=== PATIENT | female | born 1980 ===

== ENCOUNTER 2016-10-21 08:59 | Emergency (ER) | payer MEDICAID ==
[2016-10-21] MEDS ORDERED: Sodium Chloride 0.9% 1,000 ML IV STA (09:20)
[2016-10-21] MEDS ORDERED: Sodium Chloride 0.9% 1,000 ML ONE (09:29)
[2016-10-21 09:35] LABS: RBC URINE 1049 /hpf (0-3); URINE BILIRUBIN NEGATIVE (NEGATIVE); URINE BLOOD 3+ (NEGATIVE); URINE COLOR Red (YELLOW); URINE GLUCOSE (UA) NORMAL (Normal); URINE KETONE NEGATIVE (NEGATIVE); URINE LEUKOCYTE ESTERASE NEG Leu/uL (Negative); URINE PROTEIN 2+ mg/dL (NEGATIVE); URINE UROBILINOGEN NORMAL mg/dL (0.2-1.0)
[2016-10-21 09:47] LABS: ALB/GLOB RATIO 1.1 (1.0-2.1); ALKALINE PHOSPHATASE 96 U/L (38-126); ALT/SGPT 18 U/L (9-52); AST/SGOT 16 U/L (14-36); BILIRUBIN,TOTAL 0.4 mg/dL (0.2-1.3); BLOOD UREA NITROGEN 16 mg/dL (7-17); CALCIUM 9.9 mg/dl (8.6-10.4); CARBON DIOXIDE 25 mmol/L (22-30); CHLORIDE 98 mmol/L (98-107); GFR AFRICAN-AMERICAN > 60; GLUCOSE,RANDOM 146 mg/dL (65-105); POTASSIUM 3.7 mmol/L (3.6-5.2); SODIUM 138 mmol/L (132-148); TOTAL PROTEIN 7.5 g/dL (6.3-8.3)
[2016-10-21 09:48] LABS: BASO % 0.2 % (0.0-2.0); EOS % 0.2 % (0.0-4.0); HEMATOCRIT 37.3 % (34.0-47.0); LYMPH # 2.1 K/uL (1.0-4.3); LYMPH % 15.2 % (20.0-40.0); MEAN CELL VOLUME 78.7 fL (81.0-99.0); MEAN CORPUSCULAR HEMOGLOBIN 25.3 pg (27.0-31.0); MEAN CORPUSCULAR HGB CONC 32.2 g/dL (33.0-37.0); MONO # 0.6 K/uL (0.0-0.8); RED CELL DISTRIBUTION WIDTH 14.5 % (11.5-14.5); WHITE BLOOD COUNT 14.1 K/uL (4.8-10.8)
--- NOTE | 2016-10-21 10:34 | US ---
HISTORY: , bleeding COMPARISON: None available. TECHNIQUE: Transvaginal pelvic ultrasound was performed in longitudinal and transverse planes. FINDINGS: UTERUS: Measures 10.8 x 5.2 x 5.8 cm cm. The myometrium appears somewhat inhomogeneous but without focal mass appreciable. The uterus is anteverted. ENDOMETRIUM: Measures 20.3 mm in diameter. The in the endometrium appears prominent in thickness with no viable identified within the endometrial cavity. Retained products of conception are not excluded given prominent thickness of the endometrium. CERVIX: No cervical abnormality identified. RIGHT OVARY: Measures 2.7 x 2.2 x 2.5 cm. No solid mass. Normal flow. LEFT OVARY: Measures 2.8 x 2.9 x 1.7 cm. No solid mass. Normal flow. FREE FLUID: No significant free fluid noted. OTHER FINDINGS: None. IMPRESSION: No viable intrauterine gestation is appreciated this time within the endometrial cavity. The endometrium appears prominently thickened and retained products of conception are not excluded. Clinical correlation is advised.
--- NOTE | 2016-10-21 12:41 | C.PDOC ---
History Of Present Illness 36 year old female presents to the ED with complaints of vaginal bleeding and pelvic cramping beginning yesterday. Patient notes symptoms worsening today and bleed "two large clots" this morning. 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 Patient denies fever, nausea, or vomiting. Time Seen by Provider: 10/21/16 09:12 Chief Complaint (Nursing): Female Genitourinary History Per: Patient History/Exam Limitations: no limitations Onset/Duration Of Symptoms: Days (1 day ), Worse Since (this morning ) Current Symptoms Are (Timing): Still Present Quality Of Discomfort: Cramping Associated Symptoms: denies: Fever, Chills, Nausea, Vomiting, Diarrhea Recent travel outside of the [place]: No Abnormal Vaginal Bleeding: Yes Past Medical History Reviewed: Historical Data, Nursing Documentation, Vital Signs Vital Signs: Last Vital Signs Temp 98.4 F 10/21/16 12:52 Pulse 89 10/21/16 12:52 Resp 16 10/21/16 12:52 BP 117/72 10/21/16 12:52 Pulse Ox 100 10/21/16 13:48 Family History: States: Unknown Family Hx - Social History Hx Alcohol Use: Yes Hx Substance Use: No Review Of Systems Constitutional: Negative for: Fever, Chills Cardiovascular: Negative for: Chest Pain Respiratory: Negative for: Shortness of Breath Gastrointestinal: Negative for: Nausea, Vomiting Genitourinary: Positive for: Vaginal Bleeding, Pelvic Pain (pelvic cramping ). Negative for: Dysuria, Hematuria Physical Exam - Physical Exam Appears: Non-toxic, No Acute Distress Skin: Warm, Dry Head: Atraumatic Eye(s): bilateral: Normal Inspection Oral Mucosa: Moist Neck: Supple Chest: Symmetrical, No Deformity Cardiovascular: Rhythm Regular Respiratory: Normal Breath Sounds, No Rales, No Rhonchi, No Wheezing Gastrointestinal/Abdominal: Soft, Tenderness (mild suprapubic tenderness ), No Distention, No Guarding, No Rebound Extremity: Normal ROM, No Tenderness Neurological/Psych: Oriented x3, Normal Speech, Normal Cognition ED Course And Treatment - Laboratory Results Result Diagrams: 10/21/16 09:30 10/21/16 09:30 O2 Sat by Pulse Oximetry: 100 (room air ) - CT Scan/US Pelvic US Other Rad Studies (CT/US): Read By Radiologist, Radiology Report Reviewed CT/US Interpretation: Accession No. : [id number]. Patient Name / ID : BRANDT ANGULO / [id number]. Exam Date : 10/21/2016 09:36:15 ( Approved ). Study Comment : Sex / Age : F / 36Y. Creator : Austen Moura MD. Dictator : Austen Moura MD. Postdoctoral Fellow : Traveler Changer : Austen Moura MD. Approver2 : Report Date : 10/21/2016 10:32:17. My Comment : . HISTORY: , bleeding. COMPARISON: None available. TECHNIQUE: Transvaginal pelvic ultrasound was performed in longitudinal and transverse planes. FINDINGS: UTERUS: Measures 10.8 x 5.2 x 5.8 cm cm. The myometrium appears somewhat inhomogeneous but without focal mass appreciable. The uterus is anteverted. ENDOMETRIUM: Measures 20.3 mm in diameter. The in the endometrium appears prominent in thickness with no viable identified within the endometrial cavity. Retained products of conception are not excluded given prominent thickness of the endometrium. CERVIX: No cervical abnormality identified. RIGHT OVARY: Measures 2.7 x 2.2 x 2.5 cm. No solid mass. Normal flow. LEFT OVARY: Measures 2.8 x 2.9 x 1.7 cm. No solid mass. Normal flow. FREE FLUID: No significant free fluid noted. OTHER FINDINGS: None. IMPRESSION: No viable intrauterine gestation is appreciated this time within the endometrial cavity. The endometrium appears prominently thickened and retained products of conception are not excluded. Clinical correlation is advised. Progress Note: Patient was given Doryx, Tylenol, and IV fluids. Explained to patient results of US and to return to ED if bleeding more than one pad an hour. Patient instructed to follow up with her TEXTILE COLORIST FORMULATOR this week. - Physician Consult Information Time Consulting Physician Contacted: 10:00 Physician Contacted: Rosemarie Herrmann Outcome Of Conversation: Case discussed with Dr. Herrmann after reviewing US results, endometrium is 2 cm which is acceptable and there is no indication for emergency D & C. Dr. Herrmann suggests to give and prescribe doxycycline. Disposition - Disposition Disposition: HOME/ ROUTINE Disposition Time: 12:39 Condition: STABLE Additional Instructions: Follow up with PMD /OBGYN within 1-2 days. Return to ED if feel worse. Prescriptions: Doxycycline Hyclate [Doryx] 100 mg PO BID #14 cap Instructions: Spontaneous Miscarriage (ED) Forms: [employer] (Hungarian) Print Language: ROMANIAN - Clinical Impression Clinical Impression: Miscarriage - Scribe Statement The provider has reviewed the documentation as recorded by the Scribe Heather Barnes All medical record entries made by the Scribe were at my direction and personally dictated by me. I have reviewed the chart and agree that the record accurately reflects my personal performance of the history, physical exam, medical decision making, and the department course for this patient. I have also personally directed, reviewed, and agree with the discharge instructions and disposition.
[2016-10-21 12:53] VITALS: BP 117/72; PULSE 89; RESP 16; TEMP 98.4
[2016-10-21 13:04] VITALS: O2SAT 100
== END 2016-10-21 12:54 | disposition home or self-care (01) ==
LOC: C.ER 08:59
DX: O03.9 Complete or unspecified spontaneous abortion without complication (principal)
CPT/HCPCS: 76830; 76856; 80053; 81001; 84702; 84703; 85025; 86850; 86900; 96360; 99285; J7040

== ENCOUNTER 2016-11-01 12:15 | Emergency (ER) | payer MEDICAID ==
[2016-11-01 13:06] LABS: URINE BACTERIA RARE (<OCC); URINE BILIRUBIN NEGATIVE (NEGATIVE); URINE COLOR Colorless (YELLOW); URINE GLUCOSE (UA) NORMAL (Normal); URINE KETONE NEGATIVE (NEGATIVE); URINE LEUKOCYTE ESTERASE TRACE Leu/uL (Negative); URINE PROTEIN NEGATIVE (NEGATIVE); URINE UROBILINOGEN NORMAL mg/dL (0.2-1.0); WBC URINE 1 /hpf (0-5)
[2016-11-01 13:20] LABS: RBC URINE 6 /hpf (0-3); URINE BLOOD 3+ (NEGATIVE)
--- NOTE | 2016-11-01 14:01 | C.PDOC ---
History Of Present Illness 36 y/o female, with no significant PMHx, presents to ED for evaluation of stabbing abdominal pain since yesterday. Denies taking any over the counter pain medications. Notes that pain is 6/10 in severity and is worse with positional changes, and deep inspiration. Pt states that she was seen here on 10/21/16 for miscarriage, and has not followed up with OBGYN since that time. Notes that she noticed blood in the urine which prompted her to visit the ED today. Denies dysuria, urinary frequency, back pain, n/v/d, or fever. Time Seen by Provider: 11/01/16 13:20 Chief Complaint (Nursing): Abdominal Pain History Per: Patient History/Exam Limitations: no limitations Onset/Duration Of Symptoms: Days (1) Current Symptoms Are (Timing): Still Present Severity: Moderate Pain Scale Rating Of: 6 Location Of Pain/Discomfort: Diffuse Radiation Of Pain To:: None Quality Of Discomfort: "Pain" Associated Symptoms: Urinary Symptoms (hematuria). denies: Nausea, Vomiting, Diarrhea, Loss Of Appetite, Back Pain, Chest Pain, Constipation Exacerbating Factors: Movement, Deep Breaths Alleviating Factors: None Recent travel outside of the [place]: No Additional History Per: Patient Abnormal Vaginal Bleeding: No Past Medical History Reviewed: Historical Data, Nursing Documentation, Vital Signs Vital Signs: Last Vital Signs Temp 98.4 F 11/01/16 15:36 Pulse 62 11/01/16 15:36 Resp 20 11/01/16 15:36 BP 100/71 11/01/16 15:36 Pulse Ox 100 11/01/16 15:36 Family History: States: Unknown Family Hx - Social History Hx Alcohol Use: Yes Hx Substance Use: No Review Of Systems Constitutional: Negative for: Fever, Chills Cardiovascular: Negative for: Chest Pain, Palpitations, Edema, Light Headedness Respiratory: Negative for: Cough, Shortness of Breath Gastrointestinal: Positive for: Abdominal Pain. Negative for: Nausea, Vomiting , Diarrhea, Constipation, Melena, Hematochezia Genitourinary: Positive for: Hematuria. Negative for: Dysuria, Frequency, Incontinence, Vaginal Discharge, Vaginal Bleeding Musculoskeletal: Negative for: Neck Pain, Back Pain Skin: Negative for: Rash Neurological: Negative for: Headache, Dizziness Physical Exam - Physical Exam Appears: Non-toxic, No Acute Distress Skin: Normal Color, Warm, Dry, No Rash Head: Atraumatic, Normacephalic Eye(s): bilateral: Normal Inspection, PERRL, EOMI Oral Mucosa: Moist Neck: Normal ROM, Supple Chest: Symmetrical Cardiovascular: Rhythm Regular, No Murmur Respiratory: No Accessory Muscle Use, No Rales, No Rhonchi, No Wheezing Gastrointestinal/Abdominal: Bowel Sounds (normal), Soft, Tenderness (diffuse), No Guarding, No Rebound Back: No CVA Tenderness Extremity: Normal ROM, No Pedal Edema Neurological/Psych: Oriented x3, Normal Speech, Normal Cognition ED Course And Treatment - Laboratory Results Result Diagrams: 11/01/16 17:22 O2 Sat by Pulse Oximetry: 99 (on RA) Pulse Ox Interpretation: Normal Medical Decision Making Medical Decision Making: Blood work, transvaginal ultrasound ordered and reviewed. Disposition - Disposition Disposition Time: 19:05 Condition: STABLE - Clinical Impression Clinical Impression: Abdominal pain, Miscarriage - Scribe Statement The provider has reviewed the documentation as recorded by the Scribe David Herrmann All medical record entries made by the Scribe were at my direction and personally dictated by me. I have reviewed the chart and agree that the record accurately reflects my personal performance of the history, physical exam, medical decision making, and the department course for this patient. I have also personally directed, reviewed, and agree with the discharge instructions and disposition. 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
--- NOTE | 2016-11-01 15:15 | US ---
HISTORY: Status post miscarriage COMPARISON: Comparison made with prior study 10/21/2016 TECHNIQUE: Transvaginal sonographic evaluation of the pelvis performed. FINDINGS: UTERUS: The uterus is anteverted measuring approximately 8.8 x 4.1 x 4.8 cm. . No evidence of intrauterine gestation The endometrium exhibits slightly heterogeneous echotexture and is thickened at 1.24 cm and exhibits slight increased vascularity. Residual retained products of conception must be excluded. Note however the endometrium is less thick compared to the prior study which was measured approximately 2.0 cm on the prior exam. Correlation with serum beta HCG suggested as the possibility of an ectopic cannot be excluded. DAMPER WORKER consultation recommended No free fluid seen in the cul de sac. Right ovary measures 3.6 x 1.7 x 2.3 cm and exhibits arterial flow. Left ovary measures 3.6 x 2.2 x 3.4 cm and also exhibits arterial flow. . IMPRESSION: No evidence of intrauterine gestation. Thickened endometrium with low-level echoes and mild vascularity. Findings could represent residual retained products of conception. . . . Correlation with serum beta HCG suggested as the possibility of an ectopic cannot be excluded. DAMPER WORKER consultation recommended. Note these findings were discussed with Dr. Obrien at approximately 3:12 p.m. with written down and read back verification.
[2016-11-01 15:37] VITALS: BP 100/71; PULSE 62; RESP 20; TEMP 98.4
[2016-11-01 17:40] LABS: BASO % 0.3 % (0.0-2.0); EOS % 0.4 % (0.0-4.0); HEMATOCRIT 28.4 % (34.0-47.0); LYMPH # 2.6 K/uL (1.0-4.3); LYMPH % 22.6 % (20.0-40.0); MEAN CELL VOLUME 77.5 fL (81.0-99.0); MEAN CORPUSCULAR HEMOGLOBIN 24.8 pg (27.0-31.0); MEAN CORPUSCULAR HGB CONC 32.1 g/dL (33.0-37.0); MEAN PLATELET VOLUME 9.5 fL (7.2-11.7); MONO # 0.7 K/uL (0.0-0.8); MONO % 6.3 % (0.0-10.0); NRBC % 0.1 % (0.0-2.0); RED CELL DISTRIBUTION WIDTH 14.8 % (11.5-14.5); WHITE BLOOD COUNT 11.3 K/uL (4.8-10.8)
[2016-11-01 19:07] VITALS: O2SAT 99
--- NOTE | 2016-11-01 19:19 | CP.PCM.CON ---
<Nette Euceda - Last Filed: 11/01/16 19:53> History of Present Illness - History of Present Illness History of Present Illness: 36 year old with no significant past medical history presents to the ED for B/L pelvic pain. Patient reports that pain started last night, it is intermittent and is progressively getting worse. Patient was seen recently in the ED on 10/21 for vaginal bleeding. TVUS at that time showed no viable intrauterine gestation appreciated within the endometrial cavity. The endometrium appears prominently thickened and retained products of conception are not excluded. At that time she was discharged from the ED with antibiotics. Currently reports that she is still having vaginal bleeding but very minimal. No other complaints at this time. Denies headaches, dizziness, cp, palpitations , sob, urinary symptoms. OB Hx: 1. 2008 PLTCD in [facility] Female 7lbs, no complications 2. 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: [place] - 12//3 days Denies hx of fibroids, ovarian cysts, STIs Denies hx of abnormal pap smear Last pap 07/2016 Allergies: NKDA Medications: PNV Medical Hx: denies Surgical Hx: C/S x 2 Social Hx: Denies hx of alcohol, drug, tobacco use; unemployed; for 5 years Family Hx: Mother - unknown; Father age 60 - healthy; no hx of cancer Review of Systems - Constitutional Constitutional: absent: Chills, Fever, Headache - EENT Eyes: absent: Change in Vision - Cardiovascular Cardiovascular: absent: Chest Pain, Dyspnea, Edema, Palpitations - Respiratory Respiratory: absent: Cough, Dyspnea, Wheezing - Gastrointestinal Gastrointestinal: Cramping. absent: Nausea, Vomiting - Genitourinary Genitourinary: absent: Difficulty Urinating, Dysuria, Hematuria - Reproductive: Female Reproductive:Female: Pelvic Pain - Neurological Neurological: absent: Dizziness, Weakness Past Patient History - Past Social History Smoking Status: Never Smoked - PSYCHIATRIC Hx Substance Use: No - SURGICAL HISTORY Hx Surgeries: Yes Hx Section: Yes (X2) - ANESTHESIA Hx Anesthesia: No Meds Home Medications: Home Medication List Medication Instructions Recorded Confirmed Type Doxycycline Hyclate 100 mg PO BID #20 capsule 11/01/16 Rx Ibuprofen [Motrin Tab] 800 mg PO TID PRN #15 tab 11/01/16 Rx Methylergonovine Maleate 0.2 mg PO Q4H #6 tablet 11/01/16 Rx [Methergine] Allergies/Adverse Reactions: Allergies Allergy/AdvReac Type Severity Reaction Status Date / Time No Known Allergies Allergy Verified 10/21/16 09:11 Physical Exam - Constitutional Appears: Well, Non-toxic - Head Exam Head Exam: ATRAUMATIC, NORMAL INSPECTION - Eye Exam Eye Exam: EOMI, Normal appearance Pupil Exam: NORMAL ACCOMODATION - ENT Exam ENT Exam: Mucous Membranes Moist - Neck Exam Neck exam: Positive for: Normal Inspection - Respiratory Exam Respiratory Exam: Clear to Auscultation Bilateral, NORMAL BREATHING PATTERN. absent: Rales, Rhonchi, Wheezes - Cardiovascular Exam Cardiovascular Exam: REGULAR RHYTHM, +S1, +S2 - GI/Abdominal Exam GI & Abdominal Exam: Normal Bowel Sounds, Soft. absent: Guarding, Rebound, Rigid - Exam Bimanual exam: absent: Adenexal Mass, Cervical Motion Tendernes Additional comments: Cervical Os opened Minimal vaginal bleeding noted on glove during pelvic exam - Extremities Exam Extremities exam: Positive for: pedal pulses present. Negative for: calf tenderness - Neurological Exam Neurological exam: CN II-XII Intact, Normal Gait, Oriented x3 - Skin Skin Exam: Dry, Normal Color, Warm Results - Vital Signs Recent Vital Signs: Last Vital Signs Temp 98.4 F 11/01/16 15:36 Pulse 62 11/01/16 15:36 Resp 20 11/01/16 15:36 BP 100/71 11/01/16 15:36 Pulse Ox 99 11/01/16 19:07 - Labs Result Diagrams: 11/01/16 17:22 Labs: Laboratory Results - last 24 hr 11/01/16 11/01/16 11/01/16 12:47 14:05 17:22 WBC 11.3 H RBC 3.67 L Hgb 9.1 L D Hct 28.4 L MCV 77.5 L MCH 24.8 L MCHC 32.1 L RDW 14.8 H Plt Count 190 MPV 9.5 Neut % (Auto) 70.4 Lymph % (Auto) 22.6 Collin % (Auto) 6.3 Eos % (Auto) 0.4 Baso % (Auto) 0.3 Neut # 7.9 H Lymph # 2.6 Collin # 0.7 Eos # 0.0 Baso # 0.0 Beta HCG, Quant 44.81 Urine Color Colorless Urine Clarity Clear Urine pH 7.0 Ur Specific [place] 1.003 Urine Protein Negative Urine Glucose (UA) Normal Urine Ketones Negative Urine Blood 3+ H Urine Nitrate Negative Urine Bilirubin Negative Urine Urobilinogen Normal Ur Leukocyte Esterase Trace Urine WBC (Auto) 1 Urine RBC (Auto) 6 H Ur Squamous Epith Cells 2 Urine Bacteria Rare Urine HCG, Qual Negative Assessment & Plan - Assessment and Plan (Free Text) Assessment: 36 yo presents with B/L pelvic pain and vaginal bleeding, TVUS showing No evidence of intrauterine gestation. Thickened endometrium with low-level echoes and mild vascularity. Findings could represent residual retained products of conception. Correlation with serum beta HCG suggested as the possibility of an ectopic cannot be excluded Plan: Incomplete 1. Stable, afebrile 2. Hgb 9.1, asymptomatic 3. Beta Hcg decreasing appropriately 3445.2 --> 44.81 4. Patient counseled on medical vs expectant vs surgical management, patient chose to proceed with medical management 5. Recommending Methergine 0.2mg q4h x 6 doses, Doxycylcine 100mg BID x 7days, Motrin 800mg Q8H prn pain 6. Patient to follow up with [facility] as scheduled on 7. Patient to return to ED if experiencing fever >100.4, soaking > 2 pads an hour for 2 consecutive hours 8. Plan d/w attending <Marita Berger - Last Filed: 11/01/16 23:42> Results - Vital Signs Recent Vital Signs: Last Vital Signs Temp 98.4 F 11/01/16 15:36 Pulse 62 11/01/16 15:36 Resp 20 11/01/16 15:36 BP 100/71 11/01/16 15:36 Pulse Ox 99 11/01/16 19:07 - Labs Result Diagrams: 11/01/16 17:22 Labs: Laboratory Results - last 24 hr 11/01/16 11/01/16 11/01/16 12:47 14:05 17:22 WBC 11.3 H RBC 3.67 L Hgb 9.1 L D Hct 28.4 L MCV 77.5 L MCH 24.8 L MCHC 32.1 L RDW 14.8 H Plt Count 190 MPV 9.5 Neut % (Auto) 70.4 Lymph % (Auto) 22.6 Collin % (Auto) 6.3 Eos % (Auto) 0.4 Baso % (Auto) 0.3 Neut # 7.9 H Lymph # 2.6 Collin # 0.7 Eos # 0.0 Baso # 0.0 Beta HCG, Quant 44.81 Urine Color Colorless Urine Clarity Clear Urine pH 7.0 Ur Specific [place] 1.003 Urine Protein Negative Urine Glucose (UA) Normal Urine Ketones Negative Urine Blood 3+ H Urine Nitrate Negative Urine Bilirubin Negative Urine Urobilinogen Normal Ur Leukocyte Esterase Trace Urine WBC (Auto) 1 Urine RBC (Auto) 6 H Ur Squamous Epith Cells 2 Urine Bacteria Rare Urine HCG, Qual Negative Attending/Attestation - Attestation I have personally seen and examined this patient.: Yes I have fully participated in the care of the patient.: Yes I have reviewed all pertinent clinical information: Yes Notes (Text): 11/01/16 23:39 Patient received in Multi-Purpose Room in the E.D.; present. E.D. Nurse serves as maintenance shop technician Labs, ultrasound reports and images reviewed by me personally. I agree with the above H&P (cervical exam performed by me, os 1 cm open; minimal blood on examining glove:. I also agree with the assessment and plan. Patient is clinically stable. Thank you for the pleasure of this consultation
== END 2016-11-01 19:39 | disposition home or self-care (01) ==
LOC: C.ER 12:15
DX: O03.9 Complete or unspecified spontaneous abortion without complication (principal); R10.9 Unspecified abdominal pain